=== PATIENT | male | born 2005 | race Caucasian/White ===

== ENCOUNTER 2024-01-06 14:07 | Emergency (ER) | payer OTHER, SELFPAY ==
[2024-01-06 14:11] VITALS: BP 159/80; BMI 25.7
[2024-01-06 14:15] LABS: Glucose - Point of Care 81 mg/dl (70-99)
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
[2024-01-06 14:32] LABS: % Basophils 1.1 % (0-2); % Eosinophils 2.3 % (0-6); % Immature Granulocytes 0.4 % (0-0.5); % Lymphocytes 26.5 % (20.5-51.1); % Monocytes 14.2 % (1.7-9.3); % Neutrophils 55.5 % (42.2-75.2); Absolute Basophils 0.1 10^3/uL (0-0.2); Absolute Eosinophils 0.2 10^3/uL (0-0.7); Absolute Lymphocytes 1.9 10^3/uL (1.2-3.4); Absolute Neutrophils 3.9 10^3/uL (1.4-6.5); Hematocrit 40.5 % (39.0-52.0); Hemoglobin 14.6 g/dL (13.0-18.0); Mean Corpuscular Hgb 28.6 pg (27.0-31.0); Mean Corpuscular Volume 79.4 fL (80.0-94.0); Mean Platelet Volume 10.8 fL (7.4-10.4); Nucleated Red Blood Cells % 0 % (-); Platelet Count 217 10^3/uL (130-400)
[2024-01-06 15:06] VITALS: BP 137/78
[2024-01-06 15:34] LABS: ALT (SGPT) 29 U/L (0-50); AST (SGOT) 33 U/L (17-59); Albumin 4.7 g/dl (3.5-5.0); Alkaline Phosphatase 78 U/L (38-126); Blood Urea Nitrogen 13 mg/dl (9-20); Calcium 9.6 mg/dl (8.4-10.2); Carbon Dioxide 28 mmol/L (22-30); Chloride 98 mmol/L (98-107); Estimated Creatinine Clearance > 125 ml/min; Glucose 89 mg/dl (70-99); Potassium 4.6 mmol/L (3.5-5.1); Sodium 135 mmol/L (135-145); Total Bilirubin 0.5 mg/dl (0.2-1.3); Total Protein 7.4 g/dl (6.3-8.2); eGFR > 60.00
[2024-01-06 16:00] VITALS: BP 124/66
[2024-01-06 17:04] VITALS: BP 131/75
[2024-01-08 23:45] LABS: Keppra (Levetiracetam) 9 ug/mL (10-40)
== END 2024-01-06 17:17 | disposition home or self-care (01) ==
LOC: EMR 14:07
PROVIDERS: EMERGENCY PHYSICIAN Emergency Medicine; FAMILY PHYSICIAN Pediatrics
DX: G40.909 Epilepsy, unspecified, not intractable, without status epilepticus (principal); Z79.899 Other long term (current) drug therapy
CPT/HCPCS: 99283; 80053; 80177; 82962; 85025; 87045; 87046; 87324; 87427; 87449; 89055

== ENCOUNTER 2024-05-22 15:49 | Emergency (ER) | payer OTHER, SELFPAY ==
[2024-05-22 16:02] VITALS: BP 143/81
[2024-05-22 16:21] LABS: % Basophils 1.1 % (0-2); % Eosinophils 6.2 % (0-6); % Immature Granulocytes 0.3 % (0-0.5); % Lymphocytes 37.6 % (20.5-51.1); % Monocytes 16.5 % (1.7-9.3); % Neutrophils 38.3 % (42.2-75.2); Absolute Basophils 0.1 10^3/uL (0-0.2); Absolute Eosinophils 0.4 10^3/uL (0-0.7); Absolute Lymphocytes 2.6 10^3/uL (1.2-3.4); Absolute Monocytes 1.2 10^3/uL (0.1-0.6); Absolute Neutrophils 2.7 10^3/uL (1.4-6.5); Hematocrit 43.4 % (39.0-52.0); Hemoglobin 15.1 g/dL (13.0-18.0); Mean Corp Hgb Conc. 34.8 g/dL (33.0-37.0); Mean Corpuscular Hgb 28.1 pg (27.0-31.0); Mean Corpuscular Volume 80.7 fL (80.0-94.0); Mean Platelet Volume 10.4 fL (7.4-10.4); Nucleated Red Blood Cells % 0 % (-); Platelet Count 241 10^3/uL (130-400); Red Blood Cell Count 5.38 10^6/uL (4.70-6.10); Red Cell Dist. Width 13.6 % (11.5-14.5)
[2024-05-22 16:38] LABS: ALT (SGPT) 38 U/L (0-50); AST (SGOT) 40 U/L (17-59); Albumin 5.3 g/dl (3.5-5.0); Alkaline Phosphatase 99 U/L (38-126); Blood Urea Nitrogen 8 mg/dl (9-20); Calcium 9.7 mg/dl (8.4-10.2); Carbon Dioxide 24 mmol/L (22-30); Chloride 103 mmol/L (98-107); Glucose 88 mg/dl (70-99); Potassium 4.5 mmol/L (3.5-5.1); Sodium 137 mmol/L (135-145); Total Bilirubin 0.6 mg/dl (0.2-1.3); Total Protein 8.2 g/dl (6.3-8.2); eGFR > 60.00
[2024-05-22 18:53] VITALS: BP 147/74
--- NOTE | 2024-05-22 18:55 | ED.GENMED ---
History of Present Illness
General
Chief Complaint: Abdominal Symptoms
Source: patient and family
Exam Limitations: none
Time Seen by Provider: 05/22/24 18:06
Nursing documentation reviewed up to this point in time: agreed with
History of Present Illness
History of Present Illness:
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 Mom reports patient had intermittent episodes of diarrhea since October
however this episode has been for the past 1 week. Patient reports he had 10 episodes of diarrhea today. He reports it is dark/green in color. He does complain of abdominal discomfort. He denies any fever or chills. He is a college student and
reports people have been intermittently sick with viruses etc.
He denies any nausea vomiting back pain UTI symptoms
Past History
Social History
Tobacco: Non-smoker
Alcohol: None
Drug: None
Review of Systems
Review of Systems
Allergies reviewed?: Yes
Other source history: family
All Other Systems: ROS reviewed and negative except as documented in HPI and ROS
Constitutional: Reports no symptoms; Denies fever, fatigue or chills
Respiratory: Reports no symptoms
Cardiac: Reports no symptoms
ABD/GI: Reports abdominal pain; Denies nausea, vomiting or diarrhea
: Reports no symptoms
Musculoskeletal: Reports no symptoms
Phy Exam
General Physical Exam
General Presentation: no apparent distress
General age: appears stated age
General Skin: warm and dry
General Habitus: normal
General Mental: alert
Gastrointestinal Exam
Gastrointestinal Exam: soft and other (mild non specific abdominal tenderness ; heme negative )
Neurological Exam
Neurological Exam: alert and oriented x3
Musculoskeletal Exam
Musculoskeletal Exam: full ROM
Skin Exam
Skin Exam: normal color and warm/dry
Psychiatric Exam
Psychiatric Exam: normal mood/affect
Course
Orders/Labs/Results
Orders:
Orders
05/22/24 16:12
Complete Blood Count/With Diff Urgent
Comprehensive Metabolic Panel Urgent
05/22/24 18:58
CT Abd/pel W Iv And Oral Contr Urgent
Comment:
Reason For Exam: abd pain /diarrhea
Iohexol [Omnipaque] See Protocol PO NOW STA
05/22/24 18:59
0.9% Sodium Chloride 1000 ml [Nss] 1,000 ml IV BOLUS
05/22/24 19:10
C DIFF [C difficile Antigen & Toxins] Urgent
LEISA Source: Feces/Stool
Specimen Description:
Date Specimen was Collected: 05/22/24
Time Specimen was Collected: 18:59
Norovirus by PCR Urgent
LEISA Source: Feces/Stool
Specimen Description:
Date Specimen was Collected: 05/22/24
Time Specimen was Collected: 18:59
Stool Culture Urgent
LEISA Source: Feces/Stool
Specimen Description:
Date Specimen was Collected: 05/22/24
Time Specimen was Collected: 18:59
Abnormal Lab Results
05/22/24
16:12
Absolute Monos (auto) 1.2 H 10^3/uL
(0.1-0.6)
Neutrophils % 38.3 L %
(42.2-75.2)
Monocytes % 16.5 H %
(1.7-9.3)
Eosinophils % 6.2 H %
(0-6)
BUN 8 L mg/dl
(9-20)
Albumin 5.3 H g/dl
(3.5-5.0)
05/22/24 16:12
05/22/24 16:12
Vital Signs
Initial and Last Documented VS:
Initial Vital Signs
Temp Pulse Resp BP Pulse Ox
98.4 F 72 16 143/81 100
05/22/24 16:02 05/22/24 16:02 05/22/24 16:02 05/22/24 16:02 05/22/24 16:02
Last Documented Vital Signs
Temp Pulse Resp BP Pulse Ox
98.3 F 81 16 147/74 98
05/22/24 18:53 05/22/24 18:53 05/22/24 16:02 05/22/24 18:53 05/22/24 18:53
Novelty Maker consulted with Physician
Novelty Maker consulted with physician?: Yes
Name of Physician Consulted: Destiney
MDM/Problems Addressed
MDM/Problems Addressed:
Patient is a 18-year-old male with history of seizures, Castleman's disease on sirolimus presents for diarrhea for the past week. Patient has had intermittent sense of diarrhea since October for the past several months however for the past week
he has had multiple episodes of diarrhea in fact he had 10 episodes today. He reports stools like dark in color/green. He does complain of some cramping. Denies any fever chills. He presents awake alert no acute distress white count is normal
labs are unremarkable.
Nonspecific very minimal abdominal tenderness. Stool heme-negative. Culture sent will order CAT scan will likely need outpatient GI follow-up. Case reviewed with ED physician who will assume care at this time 2014
*Critical Care Note
Total Time (30-74mins, 75-104mins- exclusive of procedures): Not Applicable
ED Attending Note
-
Portions of this chart may have been created with voice recognition software.� Occasional wrong word or��sound alike� substitutions may have occurred due to the inherent limitations of voice recognition software.
Discharge Plan
Departure
Prescriptions:
No Action
sirolimus 0.5 MG tablet
0.5 mg PO DAILY
Rx Instructions:
take with 2 1mg tabs for total of 2.5mg
levetiracetam 500 mg Tablet
1,000 mg PO BID
sirolimus 1 mg Tablet
2 mg PO DAILY
Rx Instructions:
take with 0.5mg tab for total of 2.5mg
ibuprofen [Advil] 200 mg Tablet
400 mg PO Q8HPRN PRN (Reason: mild pain/headache)
Immune Globulin
42 g IV QMONTH
Referrals:
Diana Sprague MD [Family Provider] -
Interventions
Interventions:
*Risk Screen - Suicide Last Done: 05/22/24 16:03
*Neglect/Abuse Screening Last Done: 05/22/24 16:03
Discharge Date and Time
Print Language: GUINEAN
[2024-05-22 18:56] VITALS: BMI 24.1
[2024-05-22] MEDS: OMNIPAQUE 50 ML PO (19:04)
[2024-05-22] MEDS: NSS 1000 IV (19:09)
[2024-05-22 21:53] VITALS: BP 123/68
--- NOTE | 2024-05-22 22:08 | ED.GENMED ---
History of Present Illness
General
Chief Complaint: Abdominal Symptoms
Source: patient
Exam Limitations: none
Time Seen by Provider: 05/22/24 18:06
Nursing documentation reviewed up to this point in time: agreed with
History of Present Illness
History of Present Illness:
The patient is a pleasant 18-year-old man who reports 1-1/2 weeks of continuous nonbloody diarrhea.
Past History
Past History
ED Past Medical History: Other
ED Past Surgical History: Other
Social History
Tobacco: Non-smoker
Alcohol: None
Drug: None
Review of Systems
Review of Systems
Allergies reviewed?: Yes
Other source history: family
All Other Systems: Not applicable
ABD/GI: Reports abdominal pain and diarrhea
Phy Exam
Physical Exam
Physical Exam:
Physical Exam
General: no apparent distress, not acutely ill
Neck: supple.
Heart: Appears well-perfused
Lungs: no acute respiratory distress.
Abdomen: Soft, nondistended
Course
Orders/Labs/Results
Orders:
Orders
05/22/24 16:12
Complete Blood Count/With Diff Urgent
Comprehensive Metabolic Panel Urgent
05/22/24 18:58
CT Abd/pel W Iv And Oral Contr Urgent
Comment:
Reason For Exam: abd pain /diarrhea
Iohexol [Omnipaque] See Protocol PO NOW STA
05/22/24 18:59
0.9% Sodium Chloride 1000 ml [Nss] 1,000 ml IV BOLUS
05/22/24 19:10
C DIFF [C difficile Antigen & Toxins] Urgent
LEISA Source: Feces/Stool
Specimen Description:
Date Specimen was Collected: 05/22/24
Time Specimen was Collected: 18:59
Norovirus by PCR Urgent
LEISA Source: Feces/Stool
Specimen Description:
Date Specimen was Collected: 05/22/24
Time Specimen was Collected: 18:59
Stool Culture Urgent
LEISA Source: Feces/Stool
Specimen Description:
Date Specimen was Collected: 05/22/24
Time Specimen was Collected: 18:59
Abnormal Lab Results
05/22/24
16:12
Absolute Monos (auto) 1.2 H 10^3/uL
(0.1-0.6)
Neutrophils % 38.3 L %
(42.2-75.2)
Monocytes % 16.5 H %
(1.7-9.3)
Eosinophils % 6.2 H %
(0-6)
BUN 8 L mg/dl
(9-20)
Albumin 5.3 H g/dl
(3.5-5.0)
05/22/24 16:12
05/22/24 16:12
Vital Signs
Initial and Last Documented VS:
Initial Vital Signs
Temp Pulse Resp BP Pulse Ox
98.4 F 72 16 143/81 100
05/22/24 16:02 05/22/24 16:02 05/22/24 16:02 05/22/24 16:02 05/22/24 16:02
Last Documented Vital Signs
Temp Pulse Resp BP Pulse Ox
98.3 F 64 16 123/68 99
05/22/24 18:53 05/22/24 21:53 05/22/24 21:53 05/22/24 21:53 05/22/24 21:53
*Radiology
Radiology exam reviewed: radiology read reviewed
*Pulse Oximetry
Patient hypoxic: no
*EKG
Interpreted by ED Provider?: NA
*Child And Adolescent Therapist Interpretation
Rate: Child And Adolescent Therapist- N/A
*Critical Care Note
Total Time (30-74mins, 75-104mins- exclusive of procedures): Not Applicable
Data Reviewed
Source: patient and family
Patient Management
Social determinants of health affecting care: Living situation and Strong social support
ED Attending Note
ED Attending Note
Patient seen and examined by attending physician: Yes
I performed the substantive portion of visit, reviewed & personally made and approve the management plan that is documented in note by myself or JORDANA.: Yes
ED Attending Note:
Patient appears well nontoxic. CT shows small bowel wall inflammation/enteritis.
Given patient is having over a week of continuous diarrhea, decision made to leave a message with GI front desk agent so he can have prompt outpatient follow-up.
-
Portions of this chart may have been created with voice recognition software.� Occasional wrong word or��sound alike� substitutions may have occurred due to the inherent limitations of voice recognition software.
Discharge Plan
Departure
Patient Disposition: Home (Routine Discharge)
Date of Disposition: 05/22/24
Time of Disposition: 22:08
Patient with high blood pressure during this ER visit?: No
Condition: Good
Covid-19: Not Applicable
Discharge Problem:
Acute diarrhea
Instructions: Diarrhea in teens and adults, [place] diet
Prescriptions:
No Action
sirolimus 0.5 MG tablet
0.5 mg PO DAILY
Rx Instructions:
take with 2 1mg tabs for total of 2.5mg
levetiracetam 500 mg Tablet
1,000 mg PO BID
sirolimus 1 mg Tablet
2 mg PO DAILY
Rx Instructions:
take with 0.5mg tab for total of 2.5mg
ibuprofen [Advil] 200 mg Tablet
400 mg PO Q8HPRN PRN (Reason: mild pain/headache)
Immune Globulin
42 g IV QMONTH
Referrals:
Diana Sprague MD [Family Provider] -
Stand Alone Forms: Back to School
Activity Restrictions/Additional Instructions:
Please listen out for a phone call from [facility]
It is important that you follow-up with them soon as possible. Their office phone number is [phone] in case you do not hear from them by tomorrow afternoon, give them a call
Interventions
Interventions:
*Risk Screen - Suicide Last Done: 05/22/24 16:03
*Neglect/Abuse Screening Last Done: 05/22/24 16:03
KF-Zrmhdl-Acdyjmtkpk Assessment Last Done: 05/22/24 20:45
Discharge Date and Time
Print Language: BOLIVIAN
== END 2024-05-22 22:25 | disposition home or self-care (01) ==
LOC: EMR 15:49
PROVIDERS: Student in an Organized Health Care Education/Training Program; EMERGENCY PHYSICIAN Emergency Medicine; FAMILY PHYSICIAN Pediatrics
DX: K52.9 Noninfective gastroenteritis and colitis, unspecified (principal)
CPT/HCPCS: 96360; 99284; 74177; 80053; 85025; 87045; 87046; 87324; 87427; 87449; 87798; Q9967